=== PATIENT | female | born 1935 | race Caucasian/White ===

== ENCOUNTER 2017-01-06 20:38 | Observation (INO) | payer MEDICARE, OTHER ==
[~2017-01-06] VITALS: Ht 147.3 cm; Wt 64.9 kg
--- NOTE | ~2017-01-06 | HP ---
History And Physical [place] [id number] [facility] [place]. 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 CHIEF COMPLAINT: Chest heaviness with palpitations. HISTORY OF PRESENT ILLNESS: A very pleasant 81-year-old white female with known history of CAD, but no intervention identified by cath in 2012 with a 50% to 75% mid LAD lesion with FFR of 0.91 and minor irregularities found in her RCA. At the time, the patient states that on 01/06/2017 around 1700 hours she experienced palpitations and chest heaviness. She called 911, but no ectopy was found on the monitor and she declined transport to the emergency room. Around 2000 hours she again experienced chest heaviness with a "skipping pulse." She describes the chest pain as midsternal in nature. It does not radiate elsewhere with associated shortness of breath and some belching which is unchanged from her baseline. She denies nausea, diaphoresis, or dizziness. At its most intense, she rates the chest pain as 7/10. At time of interview in the [facility], she is pain free. The duration of the episode yesterday was "on and off" all day and resolved on its own. She also reports an episode one week ago where she had chest pain that radiated to her jaw, relieved with one nitroglycerin sublingual. The patient denies any personal history of myocardial infarction, stroke, DVT, or pulmonary embolus. The patient recently treated for UTI with Cipro one week ago. Describes rare palpitations most recently, just yesterday. No syncopal events. Denies PND or orthopnea. PAST MEDICAL HISTORY: 1. CAD without any intervention subset a 2012 cath revealing 50% to 75% mid LAD lesion with FFR of 0.91, RCA minor irregularities EF of 60%. 2. Hypertension. 3. Dyslipidemia. 4. AODM. 5. GERD. 6. Glaucoma. 7. Hypothyroid, on replacement. 8. Anxiety. 9. Depression. 10.Cirrhosis stage 3, followed by Dr. Rikki Patel. 11.Rheumatoid arthritis, followed by Dr. Chuyita Good. 12.Positive family history for early CAD. PAST SURGICAL HISTORY: 1. Hysterectomy. 2. Bilateral subcutaneous mastectomy for severe fibrocystic disease. 3. Hemorrhoidectomy. 4. 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 5. Cataracts. History And Physical [address] [address] NAME: NAIF TERESA : 31 STATUS : ADM Alfonso PAT#: [id number] AGE: 81 ADM/REG DATE : 01/06/17 MR#: [id number] REPORT SERV DATE: 01/07/17 DICTATED BY: RAMILA AL DATE: 01/07/17 REPORT STATUS : Draft TRANSCRIBED BY: LEODAN DATE: 01/07/17 SOCIAL HISTORY: She is . Gave to three children, two one daughter at the age of 43 and one son from esophageal cancer. 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 Does not have an exercise routine. Denies tobacco or illicits. Rarely consumes wine. FAMILY HISTORY: Father at 63 of a heart attack. Brother one at 53 of a heart attack during CABG. Brother two at 68 of a heart attack. REVIEW OF SYSTEMS: A 14-point review of systems performed, significant for HPI including home blood pressures of 120 to 140 systolic, home blood sugars of 80 to less than 150. Otherwise, complete review of systems obtained and negative. ALLERGIES: ANTIVERT RASH, VALIUM CRIES. HOME MEDICATIONS: Aspirin 81 mg daily; Combigan drops; carvedilol 6.25 twice daily; vitamin D3 of 1000 units daily; CoQ10 daily; diclofenac gel p.r.n.; diltiazem ER 180 mg daily; Amaryl 1 mg twice daily; hydrocodone 7.5/325 p.r.n.; Novolin R sliding scale; Atrovent spray p.r.n.; Xalatan drops nightly; levothyroxine 50 mcg daily; Xiidra drops; Ativan 1 mg twice daily; Protonix 40 mg daily; Zoloft 100 mg nightly and 50 mg q.a.m.; Carafate 1 g p.r.n.; vitamin E 400 units daily; and valsartan/HCTZ 160/25 daily. PHYSICAL EXAMINATION: VITAL SIGNS: Bilateral blood pressures on arrival were at 144/67, left 124/78; this morning 136/75, pulse 82, respirations 18, temperature 98.5, O2 saturation 97% on room air. Height 4 feet 10 inches, weight 143 pounds. BMI is 30. GENERAL: Cooperative, in no apparent distress. HEENT: Pupils 2 mm, sclera nonicteric. Nares patent. Moist mucous membranes. No xanthelasma. NECK: Trachea midline, no thyromegaly. No JVD. No bruits. LYMPH: No cervical lymphadenopathy. No supraclavicular lymphadenopathy. RESPIRATORY: Unlabored respirations. Breath sounds clear bilaterally to posterior auscultation. No wheezes or rhonchi. CARDIOVASCULAR: Regular rate. No murmur, rub or gallop appreciated. Extremities without edema. Pulses 2+ bilaterally. ABDOMEN: Soft, nontender, nondistended, normal bowel sounds auscultated throughout. No organomegaly. SKIN: Warm, dry extremities. No pallor, or cyanosis. PSYCHIATRIC: Appropriate affect. Alert, oriented x3. LABORATORY DATA: Troponin less than 0.02 x 3. Potassium 4.1 (previously 3.5), BUN 21, creatinine 0.80, glucose 148, magnesium 2.0, BNP 84.7. WBC 11.9, hemoglobin 12.7, hematocrit 37.1, platelet count 284,000. EKG, sinus rhythm. Echo, 08/2014: EF 60%. MPI, 07/2014, no ischemia. History And Physical [address] [address] NAME: NAIF TERESA : 31 STATUS : ADM Alfonso PAT#: [id number] AGE: 81 ADM/REG DATE : 01/06/17 MR#: [id number] REPORT SERV DATE: 01/07/17 DICTATED BY: RAMILA AL DATE: 01/07/17 REPORT STATUS : Draft TRANSCRIBED BY: MODL DATE: 01/07/17 Cath in 2012 ([facility]): 50% to 75% mid LAD with FFR 0.91. RCA minor irregularities. EF 60%. Holter in 2015: 68 to 120 beats per minute, average heart rate 87 beats per minute. Occasional PVC. No VT. Rare PAC. No SVT runs. Unremarkable Holter. ASSESSMENT AND PLAN: 1. Chest pain in a patient with known coronary artery disease. At present no intervention. The patient has been observed in the CPOU overnight to rule out myocardial infarction with serial enzymes and serial EKGs and held n.p.o. We will proceed with vasodilator stress test today. The patient will be discharged home if negative study to follow up with her PCP and Dr. Glez as appropriate. If anything suggestive of ischemia, Cardiology referral will be initiated. 2. Coronary artery disease. Continue home medications with known 50% to 75% left anterior descending lesion by catheterization in 2012 with FFR of 0.91. 3. Hypertension. Monitor blood pressure and continue home medications. 4. Dyslipidemia. Continue statin. 5. Adult-onset diabetes mellitus. Level 1 sliding scale correction as needed. PEDRO/LEODAN DEE Sher, [employer] SALES REPRESENTATIVE-BC / [id number] CC: DEE Sher, [employer] SALES REPRESENTATIVE-BC Telma Zaldivar M.D.
[~2017-01-06 20:38] MED LIST: ACIPHEX PO; ALREX0.2 % OP; AMARYL2 PO; AMB10 PO; ASAB PO; ATEN50 PO; ATV1 PO; CLARINEX5 MG PO; CO Q-10100 MG PO; COMBIGAN0.2 MG/0.5 OPH; COQ10100 MG OR; COREG6 PO; DCN100 PO; DILT-XR180 MG PO; DIOV80 PO; DIOVAN HCT160 MG/25 PO; EFFEX37.5 PO; EFFEXXR37 PO; FISH-EPA1000 MG PO; FOLIC PO; GLUCCHONDR PO; HCTZ25B PO; HUMULIN R1 ML SC; LEVOTHYROXIN50 MCG PO; LORT7 PO; MURO5OOIN OPH; NITROSTAT0.4 MG SL; NORCO1 TA2 PO; NTG150 SL; P5 PO; PROLOP100 PO; SUCR PO; TREXALL5 MG PO; TRILIPIX135 MG PO; VAGIFEM25 MCG V; VIGAMOX OPH; VITAMIN D1000 UNI1 PO; VITAMIN D400 UNI1 PO; VITD PO; VITE PO; XALAT OPH; ZOL100 PO; ZOL50 PO
[2017-01-06 22:06] LABS: BASOPHILS 0.2 %; BASOPHILS ABSOLUTE 0.02 10/3/uL (0.0-0.16); EOSINOPHILS 0.8 %; HEMATOCRIT 37.1 % (36.0-48.0); HEMOGLOBIN 12.7 g/dL (12.0-16.0); IMMATURE GRANULOCYTES ABSOLUTE 0.12 10/3/uL (0.0-0.11); LYMPHOCYTES ABSOLUTE 2.97 10/3/uL (0.67-4.30); MEAN CORPUS HGB CONC 34.2 g/dL (32.0-36.0); MEAN CORPUSCULAR HEMOGLOB 31.1 pg (26.0-34.0); MEAN CORPUSCULAR VOLUME 90.9 fL (80-100); MEAN PLATELET VOLUME 9.4 fL (9.2-13.0); MONOCYTES 10.2 %; MONOCYTES ABSOLUTE 1.21 10/3/uL (0.21-1.20); NEUTROPHILS 62.8 %; NEUTROPHILS ABSOLUTE 7.46 10/3/uL (2.02-8.40); PLATELET COUNT 284 10/3/uL (150-400); RBC DISTRIBUTION WIDTH 13.4 % (12.0-16.0); RED CELL COUNT 4.08 10/6/uL (4.0-5.6); WHITE BLOOD CELLS 11.9 10/3/uL (4.5-10.5)
[2017-01-06 22:12] LABS: MANUAL DIFF NO %; PARTIAL THROMBO TIME 23.7 SEC (22.5-37.2); PROTIME (NOT ORD) 13.1 SEC (12.0-14.5)
[2017-01-06 22:24] LABS: BUN (BLOOD UREA NITROGEN) 21 MG/DL (6-23); CALCIUM, SERUM 9.5 MG/DL (8.5-10.4); CHEST PAIN PROFILE TAT 0 Hrs 24 Mins; CHLORIDE, SERUM 105 MMOL/L (96-112); CO2 (CARBON DIOXIDE) 26 MMOL/L (24-34); GFR AFRICAN AMERICAN 79 ML/MIN (>=60); GFR NON AFRICAN AMERICAN 68 ML/MIN (>=60); GLUCOSE, SERUM 148 MG/DL (60-99); POTASSIUM, SERUM 3.5 MMOL/L (3.5-5.3); SODIUM, SERUM 139 MMOL/L (135-148); TROPONIN I <0.02 NG/ML (<0.05)
[2017-01-07] MEDS ORDERED: COMBIGAN0.2 MG/0.5 OPH (00:01)
[2017-01-07] MEDS ORDERED: PROTONIX PO (00:01)
[2017-01-07] MEDS ORDERED: SUCR PO (00:01)
[2017-01-07] MEDS ORDERED: XIIDRA1 EACH OPH (00:02)
[2017-01-07] MEDS ORDERED: ATV1 PO (00:02)
[2017-01-07] MEDS ORDERED: XALAT OPH (00:02)
[2017-01-07] MEDS ORDERED: CO Q-10100 MG PO (00:03)
[2017-01-07] MEDS ORDERED: VITAMIN D31000 UNIT PO (00:03)
[2017-01-07] MEDS ORDERED: ZOL50 PO (00:03)
[2017-01-07] MEDS ORDERED: ZOL100 PO (00:03)
[2017-01-07] MEDS ORDERED: COREG6 PO (00:04)
[2017-01-07] MEDS ORDERED: LEVOTHYROXIN50 MCG PO (00:04)
[2017-01-07] MEDS ORDERED: DILT-XR180 MG PO (00:05)
[2017-01-07] MEDS ORDERED: DIOVAN HCT160 MG/25 PO (00:05)
[2017-01-07] MEDS ORDERED: VITE PO (00:05)
[2017-01-07] MEDS ORDERED: ASAB PO (00:06)
[2017-01-07] MEDS ORDERED: AMARYL1 MG PO (00:06)
[2017-01-07] MEDS ORDERED: INSNOVR SC (00:07)
[2017-01-07] MEDS ORDERED: NORCO1 TA2 PO (00:07)
[2017-01-07] MEDS ORDERED: ATRONASAL6 NAS (00:08)
[2017-01-07] MEDS ORDERED: VOLTAREN1 % TOP (00:08)
== END 2017-01-07 15:02 | disposition home or self-care (01) ==
LOC: ER 20:38 → CDU1 23:47 → CDU2 23:47
PROVIDERS: Hospitalist
DX: R07.9 Chest pain, unspecified (principal); I25.10 Atherosclerotic heart disease of native coronary artery without angina pectoris; I10 Essential (primary) hypertension; E78.5 Hyperlipidemia, unspecified; E11.9 Type 2 diabetes mellitus without complications; K21.9 Gastro-esophageal reflux disease without esophagitis; E03.9 Hypothyroidism, unspecified; F41.9 Anxiety disorder, unspecified; F32.9 Major depressive disorder, single episode, unspecified; K74.60 Unspecified cirrhosis of liver; M06.9 Rheumatoid arthritis, unspecified; Z90.49 Acquired absence of other specified parts of digestive tract; Z88.8 Allergy status to other drugs, medicaments and biological substances; Z79.82 Long term (current) use of aspirin; Z79.4 Long term (current) use of insulin; Z79.899 Other long term (current) drug therapy; Z90.710 Acquired absence of both cervix and uterus; Z98.41 Cataract extraction status, right eye; Z98.42 Cataract extraction status, left eye; Z98.890 Other specified postprocedural states
CPT/HCPCS: 71010; 78452; 80048; 82962; 83735; 83880; 84132; 84484; 85025; 85610; 85730; 93005; 93017; 99285; A9270-GY; A9502; G0378; J0153; J0280